=== PATIENT | male | born 1960 | race Caucasian/White ===

== ENCOUNTER 2017-02-24 08:35 | Day surgery (SDC) | payer MEDICARE ==
[~2017-02-24] VITALS: Ht 167.6 cm; Wt 87.1 kg
[2017-02-24 09:59] VITALS: BP 114/81; Ht 167.6 cm; Wt 87.1 kg
[2017-02-24] MEDS ORDERED: HYDROCODONE-APA1 TAB PO (13:10)
--- NOTE | 2017-03-10 17:58 | OP ---
PATIENT NAME: KELSIE MARIE MEDICAL RECORD: [id number] :64 LOCATION:[facility] ADMISSION DATE: SURGEON: FRIDA BENNETT MD DATE OF OPERATION: 02/24/2017 PREOPERATIVE DIAGNOSIS: Stiff right knee, status post total knee arthroplasty. POSTOPERATIVE DIAGNOSIS: Stiff right knee, status post total knee arthroplasty. PROCEDURE: Left knee manipulation under anesthesia. SURGEON: Frida Bennett MD ANESTHESIA: TIVA. INTRAOPERATIVE COMPLICATIONS: None. OPERATIVE SUMMARY IN DETAIL: After obtaining the appropriate preoperative orthopedic surgery consent as well as anesthetic consultation, evaluation, and clearance, the patient was brought to the operating room and left on his hospital bed, given general TIVA anesthesia and then his knee was very gently manipulated both in extension and flexion. Extension to approximately 5 degrees from full extension was achieved followed by flexion to approximately 120 degrees. This was done several times. Having completed this, the patient was awakened and taken back to outpatient in stable condition. TRANSINT:[id number] Voice Confirmation ID: [id number] DOCUMENT ID: [id number] FRIDA BENNETT MD at 1758 CC: [id number] DICTATION DATE: 03/10/17 1536 [facility] HEALTH PHYSICIST: 03/10/17 1631 [facility] 02/24/17 [id number] [place] [address]
== END 2017-02-24 14:05 | disposition home or self-care (01) ==
LOC: D.OPS 08:35 → D.PAN 11:00 → D.OPS 11:00
DX: M25.662 Stiffness of left knee, not elsewhere classified (principal); F17.200 Nicotine dependence, unspecified, uncomplicated; K21.9 Gastro-esophageal reflux disease without esophagitis; Z01.812 Encounter for preprocedural laboratory examination